=== PATIENT | male | born 1995 | race Caucasian/White ===

== ENCOUNTER → 2016-07-07 | Outpatient (CLI) | payer SELFPAY | END | disposition disaster alternative care site (69) | LOC: GAIR 06:00 | DX: K22.3 Perforation of esophagus (principal); M54.2 Cervicalgia; J98.2 Interstitial emphysema; T14.90 Injury, unspecified; S11.21XA Laceration without foreign body of pharynx and cervical esophagus, initial encounter; R07.89 Other chest pain; X58.XXXD Exposure to other specified factors, subsequent encounter | CPT/HCPCS: A0422; A0431; A0436; J3010 ==